=== PATIENT | male | born 1945 | race Caucasian/White ===

== ENCOUNTER → 2017-02-02 | Outpatient (CLI) | payer MEDICARE, OTHER ==
[~2017-02-02] MED LIST: ALBUTEROL2.5 MG/0.5 INH; ASPIRIN (CHILDR81 MG PO; BIPAP; BIPAP INH; CALCIUM + VITA1 EACH PO; CELEXA20 MG PO; CELEXA40 MG PO; CORDARONE,PACE200 MG PO; COUMADIN ** IA5 MG PO; HYZAAR 50-12.51 TAB PO; K-TAB ER20 MEQ PO; KEPPRA500 MG PO; KEPPRA750 MG PO; LEVOTHROID (SY50 MCG PO; LIBRIUM25 MG PO; MAG-OX-400(241400 MG PO; MIRALAX17 GM PO; NICODERM/HABITR21 MG TRANS; NITROSTAT0.4 MG SL; NORVASC10 MG PO; OXYGEN M-15 INH; PRILOSEC20 MG PO; TYLENOL325 MG PO; VITAMIN B-121000 MCG PO
== END | disposition disaster alternative care site (69) ==
LOC: GRAD 08:52
DX: I71.4 Abdominal aortic aneurysm, without rupture (principal)

== ENCOUNTER → 2017-03-09 | Outpatient (CLI) | payer MEDICARE, OTHER ==
[2017-03-09 09:56] LABS: INR - (THERAPEUTIC) 1.12 (0.92-1.07); PROTIME 11.8 SECONDS (9.8-11.4)
== END | disposition disaster alternative care site (69) ==
LOC: LCNC 09:48
PROVIDERS: Internal Medicine Interventional Cardiology
DX: I48.0 Paroxysmal atrial fibrillation (principal)

== ENCOUNTER → 2017-03-30 | Outpatient (CLI) | payer MEDICARE, OTHER | END | disposition disaster alternative care site (69) | LOC: GPOC 03-27 16:00 | PROC: 3E0U33Z Introduction of Anti-inflammatory into Joints, Percutaneous Approach (ICD-10-PCS; principal; 2017-03-30) | PROC: 3E0U3BZ Introduction of Anesthetic Agent into Joints, Percutaneous Approach (ICD-10-PCS; 2017-03-30) | DX: M53.3 Sacrococcygeal disorders, not elsewhere classified (principal) | CPT/HCPCS: G0260; J1040; J3301 ==